=== PATIENT | male | born 1965 | race Caucasian/White ===

== ENCOUNTER 2022-05-01 09:53 | Outpatient (CLI) | payer BC, SELFPAY ==
--- NOTE | 2022-05-01 10:12 | CT_ITS ---
WS: [id number] CT HEAD TECHNIQUE: Noncontrast and contrast-enhanced CT of the head. CLINICAL INFORMATION: NEW ONSET HEADACHE COMPARISON: None. DLP: 2270.[address] scans at [facility] use at least one of these dose optimization techniques: automated e xposure control; mA and/or kV adjustment per patient size (includes targeted exams where dose is matc hed to clinical indication); or iterative reconstruction. FINDINGS: No evidence of intracranial hemorrhage or mass effect. Ventricular system and basal cisterns are webster nt. Normal jorge-white differentiation. No extra-axial fluid collections. No abnormal intracranial enh ancement. Paranasal sinuses and mastoid air cells well aerated. Normal posterior nasopharynx. Normal visualized dural venous sinuses. CT/CT head wo/w con [id number] IMPRESSION: 1. No evidence of intracranial hemorrhage or mass effect. 2. No abnormal intracranial enhancement. 3. Mild parenchymal volume loss. 4. No other acute findings.
[2022-05-01] MEDS: iohexol 350 mg/mL 100 mL Btl IV (10:27)
== END 2022-05-01 09:54 | disposition home or self-care (01) ==
LOC: RAD 09:54
PROVIDERS: PCP Family Medicine; Visit Provider Family Medicine
DX: R51.9 Headache, unspecified (principal)
CPT/HCPCS: 70470

== ENCOUNTER 2023-04-22 08:20 | Outpatient (CLI) | payer OTHER, SELFPAY ==
--- NOTE | 2023-04-22 08:33 | FL_ITS ---
WS: [id number] Exam: FL barium swallow modifd [id number] Date/Time of Exam: 04/22/2023 9:03 AM Reason For Exam: Other dysphagia Fluoroscopy time: 2min [id number] minutes # of spot films: Modified barium swallow was performed in conjunction with the speech therapy service. The patient ingested all consistencies of barium mixture foodstuffs without aspiration or penetration . Swallowing function at the level of the oropharynx was normal. The patient swallowed a barium table t without difficulty. IMPRESSION: 1. Unremarkable modified barium swallow. No aspiration, penetration or other significant finding. A separate report of recommendations and findings will follow from the speech therapy service.
== END 2023-04-22 08:21 | disposition home or self-care (01) ==
PROVIDERS: PCP Family Medicine; Visit Provider Specialist
DX: R13.19 Other dysphagia (principal)
CPT/HCPCS: 74230; 92611

== ENCOUNTER 2025-06-10 20:45 | Emergency (ER) | payer OTHER, SELFPAY ==
[2025-06-10] VITALS (12 sets, daily range): BP systolic 96–125; BP diastolic 64–85; PULSE 53–67; RESP 14–24; TEMP 36.8; O2SAT 92–98; BMI 25.7
--- OUTSIDE RECORDS SUMMARY | 2025-06-10 20:50 | XMS_ITS | Continuity of Care Document ---
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 Plan of Treatment Reminders Order Date Submit Date Provider Last Modified By Organization Details Last Modified Time Details Appointments LAB 2024 09:50A M LAB Not available Not available Not available OFFICE VISIT NIKOLAI 2024 09:15A M Jed Menchaca MD Not available Not available Not available Lab PSA, serum or plasma 2024 025 [employer], [address] [facility] [address], [address] [place], [address], 06/10/2025 10:45:31 CMP, serum or plasma 2024 025 BECKIE [facility], [address], [place], [address], 06/10/2025 11:25:33 lipid panel, blood 2024 025 [facility], [address], [place], [address], 06/10/2025 11:25:34 CBC 2024 025 BECKIE [facility], [address], [place], [address], 06/10/2025 11:06:31 Referral None recorded . Procedures None recorded . Surgeries None recorded . Imaging None recorded . Medication Orders None recorded . Patient TargetsNo targets recorded. Patient InstructionsNo instructions recorded. Reason for Referral None Reported. Results Created Date Observation Date Name Description Value Unit Range Abnormal Flag Note LastModifiedBy Organization Detail LastModifiedTime 06/10/2006/10/2025 CBC WBC 7.5 x10 4.5-10 .5 Not Available [facility] [address], [place], [address], 06/10/2025 11:06:30 06/10/2006/10/2025 CBC RBC 5.94 x10 4.30-5 .90 high Not Available [facility] [address] [facility] [address], [place], [address], 06/10/2025 11:06:30 06/10/20 25 06/10/2025 CBC HGB 18.1 g/dL 13.5-1 8.0 high Not Available [facility] [address] [facility] [address], [place], [address], 06/10/2025 11:06:30 06/10/20 25 06/10/2025 CBC HCT 54.4 % 35.0-6 0.0 Not Available [facility] [address] [facility] [address], [place], [address], 06/10/2025 11:06:30 06/10/20 25 06/10/2025 CBC MCV 91.5 fL 80.0-9 9.9 Not Available [facility] [address] [facility] [address], [place], [address], 06/10/2025 11:06:30 06/10/2006/10/2025 CBC MCH 30.4 pg 27.0-3 2.0 Not Available [facility] [address] [facility] [address], [place], [address], 06/10/2025 11:06:30 06/10/20 25 06/10/2025 CBC MCHC 33.2 g/dL 32.0-3 6.0 Not Available [facility] [address] [facility] [address], [place], [address], 06/10/2025 11:06:30 06/10/20 25 06/10/2025 CBC RDW 13.2 % 11.5-1 4.5 Not Available [facility] [address] [facility] [address], [place], [address], 06/10/2025 11:06:30 06/10/2006/10/2025 CBC plt 256.9 x10 150.0- 451.0 Not Available [facility] [address] [facility] [address], [place], [address], 06/10/2025 11:06:30 06/10/20 25 06/10/2025 CBC lymphocytes % 26.4 % 20.0-5 0.0 Not Available [facility] [address] [facility] [address], [place], [address], 06/10/2025 11:06:30 06/10/20 25 06/10/2025 CBC granulcytes % 61.6 % 30.0-7 0.0 Not Available [facility] [address] [facility] [address], [place], [address], 06/10/2025 11:06:30 06/10/20 25 06/10/2025 CBC monocytes % 10.6 % 2.0-16 .0 Not Available [facility] [address] [facility] [address], [place], [address], 06/10/2025 11:06:30 06/10/20 25 06/10/2025 CBC granulcytes# 4.6 x10 Not Letitia ilable [facility] [address] [facility], [place], [address], 06/10/2025 11:06:30 06/10/20 25 06/10/2025 CBC lymphocytes # 2.0 x10 Not Available [facility] [address] [facility] [place], [address], 06/10/2025 11:06:30 06/10/20 25 06/10/2025 CBC monocytes # 0.8 x10 Not Avai lable [facility] [address] [facility], [place], [address], 06/10/2025 11:06:30 06/10/20 25 06/10/2025 CMP (MALE ) glucose 108.0 mg/dL 60.0-9 9.0 high Not Available [facility] [address] [facility] [address], [place], [address], 06/10/2025 11:25:33 06/10/20 25 06/10/2025 CMP (MALE ) BUN (blood urea nitrogen) 13.0 mg/dL 10.0-2 6.0 Not Available [facility] [address] [facility], [place], [address], 06/10/2025 11:25:33 06/10/20 25 06/10/2025 CMP (MALE ) creatinine (serum) 1.0 mg/dL 0.4-1. 5 Not Available [facility] [address] [facility] [address], [place], [address], 06/10/2025 11:25:33 06/10/20 25 06/10/2025 CMP (MALE ) BUN/creatini ne ratio 13.00 ratio Not Available [facility] [address] [facility], [place], [address], 06/10/2025 11:25:33 06/10/20 25 06/10/2025 CMP (MALE ) eGFR calculated 81.0 Not Available [facility] [address] [facility] [address], [place], [address], 06/10/2025 11:25:33 06/10/20 25 06/10/2025 CMP (MALE ) total protein 8.2 g/dL 6.0-8. 5 Not Available [facility] [address] [facility] [address], [place], [address], 06/10/2025 11:25:33 06/10/20 25 06/10/2025 CMP (MALE ) total bilirubin 1.1 mg/dL 0.2-1. 3 Not Available [facility] [address] [facility] [address], [place], [address], 06/10/2025 11:25:33 06/10/20 25 06/10/2025 CMP (MALE ) albumin 4.9 g/dL 3.5-5. 5 Not Available [facility] [address] [facility], [place], [address], 06/10/2025 11:25:33 06/10/20 25 06/10/2025 CMP (MALE ) globulin 3.3 calc Not Available [facility] [place] [facility] [address] [facility], [place], [address], 06/10/2025 11:25:33 06/10/20 25 06/10/2025 CMP (MALE ) AST (SGOT) 36.0 U/L 0.0-46 .0 Not Available [facility] [address] [facility], [place], [address], 06/10/2025 11:25:33 06/10/20 25 06/10/2025 CMP (MALE ) altv (SGPT) 38.0 U/L 13.0-6 9.0 normal Not Available [facility] [address] [facility], [place], [address], 06/10/2025 11:25:33 06/10/20 25 06/10/2025 CMP (MALE ) A/G ratio 1.5 ratio Not Available [facility] [address] [facility], [place], [address], 06/10/2025 11:25:33 06/10/20 25 06/10/2025 CMP (MALE ) ALP phos 78.0 U/L 30.0-1 40.0 normal Not Available [facility] [address] [facility], [place], [address], 06/10/2025 11:25:33 06/10/20 25 06/10/2025 CMP (MALE ) calcium 9.5 mg/dL 8.4-10 .5 Not Available [facility] [address] [facility], [place], [address], 06/10/2025 11:25:33 06/10/20 25 06/10/2025 CMP (MALE ) sodium 140.0 mmol/ L 136.0- 145.0 Not Available [facility] [address] [facility], [place], [address], 06/10/2025 11:25:33 06/10/20 25 06/10/2025 CMP (MALE ) potassium 4.7 mmol/ L 3.5-5. 1 Not Available [facility] [address] [facility], [place], [address], 06/10/2025 11:25:33 06/10/20 25 06/10/2025 CMP (MALE ) chloride 102.0 mmol/ L 98.0-1 10.0 normal Not Available [facility] [address] [facility], [place], [address], 06/10/2025 11:25:33 06/10/20 25 06/10/2025 CMP (MALE ) C02 29.0 mmol/ L 22.0-3 1.0 Not Available [place] [facility] [address] [facility], [place], [address], 06/10/2025 11:25:33 06/10/20 25 06/10/2025 CMP (MALE ) anion gap 9.0 calc Not Available [facility] [address] [facility], [place], [address], 06/10/2025 11:25:33 06/10/20 25 06/10/2025 CMP (MALE ) osmolality 289.7 calc Not Available [facility] [address] [facility], [place], [address], 06/10/2025 11:25:33 06/10/20 25 06/10/2025 LIPID PROFI LE (MALE ) cholesterol 262.0 mg/dL 0.0-20 0.0 high Not Available [facility] [address] [facility], [place], [address], 06/10/2025 11:25:34 06/10/20 25 06/10/2025 LIPID PROFI LE (MALE ) trig 135.0 mg/dL 0.0-15 0.0 Not Available [facility] [address] [facility] [address], [place], [address], 06/10/2025 11:25:34 06/10/20 25 06/10/2025 LIPID PROFI LE (MALE ) HDL - direct 42.0 mg/dL >40.0 Not Available [facility] [address] [facility], [place], [address], 06/10/2025 11:25:34 06/10/20 25 06/10/2025 LIPID PROFI LE (MALE ) VLDL - direct 27.0 mg/dL Not Available [facility] [address] [facility], [place], [address], 06/10/2025 11:25:34 06/10/2006/10/2025 LIPID PROFI IGNACIO (MALE ) LDL - direct 193.0 mg/dL 0.0-13 0.0 high Not Available [facility] [address] [facility] [address], [place], [address], 06/10/2025 11:25:34 Result Notes None recorded. Problems Name Problem SNOMED Code Status Onset Date Resolution Date Notes Provider Name and Address Organization Details Recorded Time Tinnitus 65200374 Active 2021 Maame Tovar [facility] 5 15:56:00 Displacem ent of intervert ebral disc 8141605129 Active 2021 buldging disc l4-l5; dr lui; 2 8:54AM by Perri Evans RN, Office Visit; Promoted; acuity set as *; Maame worrell [facility] 5 15:56:00 BRCA1 gene mutation detected 621561024 [facility] 20[facility] 12:39:07 Insomnia 966811211 Active 2023 Maame Tovar [facility] 5 15:56:00 Red blood cell count above reference range 250742707 Active 2023 Maame Tovar [facility] 5 15:56:00 Chronic neck pain 611455623932 7 Active 2024 Maame Tovar [facility] 5 15:56:00 Low back pain co-occurr ent and due to bilateral sciatica 025362882903 19026 Active 2024 Maame Tovar [facility], Lisa 5 15:56:00 Problem Notes None recorded. Procedures Surgical History Date Name Laterality Status Provider Name and Address Organization Details Recorded Time 2021 esophagogastroduodenoscopy completed ARISTEO WILSON GALLAGHER [facility], Lisa 4 12:36:46 2014 [facility] 5 15:56:53 procedure on back completed CRYSTAL GALLAGHER [facility], Lisa 4 12:06:25 v[facility]ctomy completed [facility] 15:56:20 Imaging Results None recorded. Procedure Notes None recorded. Medical Equipment None Reported. Allergies No known drug allergies Medications Name Sig Start Date Stop Date Status Note LastModified by Organization Details LastModified Time amoxicill in 875 mg tablet two times daily 02/08 completed Recorded 06/18/20 22 7:17AM by Crystal Gallagher LPN, Historic al Summary; Refill Quantity : 0; Not Available Not Available Not Available omeprazol e 20 mg capsule,d elayed release two times daily 02/08 completed K27.9.; Recorded 04/02/20 22 12:34PM by Perri Evans RN, Office Visit; Refill Quantity : 60; Capsule; Not Available Not Available Not Available zolpidem 10 mg tablet TAKE 1 TABLET BY MOUTH EVERY NIGHT AT BEDTIME 2024 active Not Available Not Available Not Avai lable ondansetr on 4 mg disintegr ating tablet PLACE 1 TABLET ON TOP OF TONGUE AND ALLOW TO DISSOLVE 3 TIMES A DAY NEEDED 06/17 completed Not Available Not Available Not Available Mucinex D 60 mg-600 mg tablet,ex tended release 06/05 completed Not Available Not Available Not Available Vitals None Recorded Social History None recorded. Functional Status Question Answer Note LastModified by Organizat ion Details LastModified Time Do you use any illicit or recreational drugs? No [email or web address] Information not available 06/17/2024 Do you or have you ever used any other forms of tobacco or nicotine? Yes [email or web address] Information not available 06/17/2024 What is your level of alcohol consumption? Occasional [email or web address] Information not available 06/17/2024 Do you or have you ever used smokeless tobacco? Currently chews tobacco [email or web address] Information not available 06/17/2024 Do you or have you ever used any nicotine-free cigarettes, vape, or chewing tobacco? No [email or web address] Information not available 06/17/2024 Mental Status None recorded. Family History Relationship Description Onset Age of this Age Resolved Age Notes LastModified by Organization Details LastModified Time Sister Malignant neoplasm of breast [email or web address] Not available 08/28 16:05:22 Sister BRCA1 mutation carrier detection test [email or web address] Not available 08/28 16:05:29 Brother BRCA1 mutation carrier detection test [email or web address] Not available 06/17 12:04:15 Brother BRCA2 mutation carrier detection test [email or web address] Not available 06/17 12:04:24 Medical History No medical history recorded. Immunizations Vaccine Type Date Status Note Provider Nam e and Address Organization Details Recorded Time COVID-19, mRNA, LNP-S, PF, 100 mcg/0.5mL dose or 50 mcg/0.25mL dose 2 completed Maame worrell [facility] 02/08/2023 13:46:16 Influenza, split virus, trivalent, PF 4 completed CRYSTAL worrell [facility] 06/17/2024 13:53:09 Tdap 4 completed CRYSTAL worrell [facility] 06/17/2024 13:53:34 Influenza, split virus, quadrivalent, preservative 4 completed Maame worrell [facility] 02/08/2023 13:46:16 COVID-19, mRNA, LNP-S, PF, 100 mcg/0.5mL dose or 50 mcg/0.25mL dose 2 completed Maame Guy null, [facility] 02/08/2023 13:46:16 COVID-19, mRNA, LNP-S, PF, 100 mcg/0.5mL dose or 50 mcg/0.25mL dose 2 completed Maame Guy null, [facility] 02/08/2023 13:46:16 Tdap 4 completed Maame Guy null, [facility] 02/08/2023 13:46:16 Past Encounters Encounter ID Performer Location Encounter Start Date Encounter Closed Date Diagnosis/Indication Diagnosis SNOMED-CT Code Diagnosis ICD10 Code Diagnosis IMO Codes Diagnosis Note [id number] Jed Menchaca MD [facility] ([facility]) [address] [place] [id number] [id number] 06/10/2025 10:43:43 06/10/2025 10:46:20 Screening for malignant neoplasm of prostate 854218431 Z12.5 [id number] Physical examination 588 0005 Z00.00 532707 Health Concerns Section Related Observation LastModified by Organization Detai ls LastModified Time None Recorded Concern Status LastModified by Organization Details LastModified Time None Recorded Payers Encounter Date Sequence Insurance Name Policy Number Policy Win Covered Member ID Win Member ID Guarantor Name 06/10/2025 1 [facility] [id number] Matthieu Rod [id number] Matthieu Rod
--- OUTSIDE RECORDS SUMMARY | 2025-06-10 20:50 | XMS_ITS | Data Portability ---
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 i would recommend continuing PT and f/u if any worsening radicular symptoms or any new or worrisome sx's [id number] Not available 11/09/2024 13:25:00 Plan of Treatment Reminders Order Date Submit Date Provider Last Modified By Organization Details Last Modified Time Details Appointments LAB 2024 09:50A M LAB Not available Not available Not available OFFICE VISIT NIKOLAI 2024 09:15A M Jed Schmidt MD Not available Not available Not available Lab PSA, serum or plasma 2024 025 [facility], [address] [place] [address] [address], [address] [place], [address], 06/10/2025 10:45:31 CMP, serum or plasma 2024 025 [facility], [address], [facility] 1, [place], [address], 06/10/2025 11:25:33 lipid panel, blood 2024 025 [facility], [address], [facility] 1, [place], [address], 06/10/2025 11:25:34 CBC 2024 025 [facility], [address], [facility] [address], [address], 06/10/2025 11:06:31 CBC 2023 024 [facility], [facility] [address], [facility] [address], [place], [address], 06/19/2024 07:07:23 CMP, serum or plasma 2023 024 [facility], [facility] [address], [address], [address], 06/19/2024 07:07:21 lipid panel, blood 2023 024 [facility], [facility] [address], [facility] 120, [place], [address], 06/19/2024 07:07:20 PSA, serum or plasma 2023 024 [facility], [facility], [facility] 120, [place], [address], 06/19/2024 07:07:24 Referral physical therapist referral - for chronic neck and low back pain with sciatica 2024 025 [facility], [address], [address], 09/29/2024 15:30:35 Procedures None recorded. Surgeries None recorded. Imaging XR, cervical spine, 2 or 3 view - flexion/e xtension views 2024 025 [email or web address] [facility], [address] [place], [address], 09/21/2024 15:50:09 XR, lumbosacr al spine, 2 or 3 view - flexion/e xtension views 2024 025 [email or web address] [facility], [address] [place], [address], 09/21/2024 15:50:10 Medication Orders ondansetr on 4 mg disintegr ating tablet [address] [facility][id number], [address], [facility] 2, [place], [address], 06/17/2024 12:03:33 Patient TargetsNo targets recorded. Patient InstructionsNo instructions recorded. Reason for Referral Physical Therapist Referral for Chronic neck pain for chronic neck and low back pain with sciatica Referring Physician: Jed Schmidt, Family Medicine, Encounter Date: 09/21/2024 Results Created Date Observation Date Name Description Value Unit Range Abnormal Flag Note LastModifiedBy Organization Detail LastModifiedTime 06/18/20 24 06/19/2024 LIPID PANEL , NONFA STING W/O TRIGL YCERI SEA cholesterol, total 192 mg/dL <200 normal Not Available [address], [address], 06/19/2024 07:07:20 06/18/20 24 06/19/2024 LIPID PANEL , NONFA STING W/O TRIGL YCERI SEA HDL cholesterol 39 mg/dL > or = 40 low Not Available [facility] [address], [address], 06/19/2024 07:07:20 06/18/20 24 06/19/2024 LIPID PANEL , NONFA STING W/O TRIGL YCERI SEA chol/HDLC ratio 4.9 (calc ) <5.0 normal Not Available [facility] [address], [address], 06/19/2024 07:07:20 06/18/20 24 06/19/2024 LIPID PANEL , NONFA STING W/O TRIGL YCERI SEA non HDL cholesterol 153 mg/dL _(perla c) <130 high For patie nts with diabe maura plus 1 major ASCVD risk facto r, treat ing to a non-H DL-C goal of <100 mg/dL (LDL- C of <70 mg/dL ) is consi alla emery optio n. Not Available [address], [address], 06/19/2024 07:07:20 06/18/20 24 06/19/2024 COMPR EHENS LD METAB OLIC PANEL glucose 93 mg/dL 65-99 normal Fasti ng refer ence inter eleazar Not Available [address], [address], 06/19/2024 07:07:21 06/18/20 24 06/19/2024 COMPR EHENS LD METAB OLIC PANEL urea nitrogen (BUN) 13 mg/dL 7-25 normal Not Available [address] [place], [address], 06/19/2024 07:07:21 06/18/20 24 06/19/2024 COMPR EHENS LD METAB OLIC PANEL creatinine 0.86 mg/dL 0.70-1 .30 normal Not Available [address], [address], 06/19/2024 07:07:21 06/18/20 24 06/19/2024 COMPR EHENS LD METAB OLIC PANEL eGFR 100 mL/mi n/1.7 3m2 > or = 60 normal Not Available [address], [address], 06/19/2024 07:07:21 06/18/20 24 06/19/2024 COMPR EHENS LD METAB OLIC PANEL BUN/creatini ne ratio SEE NOTE: (calc ) 6-22 Not Repor zoltan: BUN and Creat inine are withi n refer ence range . Not Available [address] [place], [address], 06/19/2024 07:07:21 06/18/20 24 06/19/2024 COMPR EHENS LD METAB OLIC PANEL sodium 136 mmol/ L 135-14 6 normal Not Available [address], [address], 06/19/2024 07:07:21 06/18/20 24 06/19/2024 COMPR EHENS LD METAB OLIC PANEL potassium 4.4 mmol/ L 3.5-5. 3 normal Not Available [address], [address], 06/19/2024 07:07:21 06/18/20 24 06/19/2024 COMPR EHENS LD METAB OLIC PANEL chloride 100 mmol/ L 98-110 normal Not Available [address], [address], 06/19/2024 07:07:21 06/18/20 24 06/19/2024 COMPR EHENS LD METAB OLIC PANEL carbon dioxide 28 mmol/ L 20-32 normal Not Available [address], [address], 06/19/2024 07:07:21 06/18/20 24 06/19/2024 COMPR EHENS LD METAB OLIC PANEL calcium 9.3 mg/dL 8.6-10 .3 normal Not Available [address], [address], 06/19/2024 07:07:21 06/18/20 24 06/19/2024 COMPR EHENS LD METAB OLIC PANEL protein, total 7.4 g/dL 6.1-8. 1 normal Not Available [address], [address], 06/19/2024 07:07:21 06/18/20 24 06/19/2024 COMPR EHENS LD METAB OLIC PANEL albumin 4.6 g/dL 3.6-5. 1 normal Not Available [address], [address], 06/19/2024 07:07:21 06/18/20 24 06/19/2024 COMPR EHENS LD METAB OLIC PANEL globulin 2.8 g/dL_ (calc ) 1.9-3. 7 normal Not Available [address], [address], 06/19/2024 07:07:21 06/18/20 24 06/19/2024 COMPR EHENS LD METAB OLIC PANEL albumin/glob ulin ratio 1.6 (calc ) 1.0-2. 5 normal Not Available [address], [address], 06/19/2024 07:07:21 06/18/20 24 06/19/2024 COMPR EHENS LD METAB OLIC PANEL bilirubin, total 0.8 mg/dL 0.2-1. 2 normal Not Available [address], [address], 06/19/2024 07:07:21 06/18/20 24 06/19/2024 COMPR EHENS LD METAB OLIC PANEL alkaline phosphatase 68 U/L 35-144 normal Not Available [address], [address], 06/19/2024 07:07:21 06/18/20 24 06/19/2024 COMPR EHENS LD METAB OLIC PANEL AST 25 U/L 10-35 normal Not Available [address], [address], 06/19/2024 07:07:21 06/18/20 24 06/19/2024 COMPR EHENS LD METAB OLIC PANEL ALT 35 U/L 9-46 normal Not Available [address], [address], 06/19/2024 07:07:21 06/18/20 24 06/19/2024 CBC (H/H, RBC, INDIC ES, WBC, PLT) white blood cell count 7.8 thous and/u L 3.8-10 .8 normal Not Available [address], [address], 06/19/2024 07:07:23 06/18/20 24 06/19/2024 CBC (H/H, RBC, INDIC ES, WBC, PLT) red blood cell count 5.68 bill on/uL 4.20-5 .80 normal Not Available [address], [address], 06/19/2024 07:07:23 06/18/20 24 06/19/2024 CBC (H/H, RBC, INDIC ES, WBC, PLT) hemoglobin 17.0 g/dL 13.2-1 7.1 normal Not Available [address], [address], 06/19/2024 07:07:23 06/18/20 24 06/19/2024 CBC (H/H, RBC, INDIC ES, WBC, PLT) hematocrit 52.0 % 38.5-5 0.0 high Not Available [address], [address], 06/19/2024 07:07:23 06/18/20 24 06/19/2024 CBC (H/H, RBC, INDIC ES, WBC, PLT) MCV 91.5 fL 80.0-1 00.0 normal Not Available [address], [address], 06/19/2024 07:07:23 06/18/20 24 06/19/2024 CBC (H/H, RBC, INDIC ES, WBC, PLT) MCH 29.9 pg 27.0-3 3.0 normal Not Available [address], [address], 06/19/2024 07:07:23 06/18/20 24 06/19/2024 CBC (H/H, RBC, INDIC ES, WBC, PLT) MCHC 32.7 g/dL 32.0-3 6.0 normal For adult s, a sligh t decre ase in the calcu lated MCHC value (in the range of 30 to 32 g/dL) is most likel y not clini gold signi fican t; arsenev er, it shoul d be inter prete d with cauti on in corre lat n with other red cell maude eters and the patie nt's clini perla condi tion. Not Available [address], [address], 06/19/2024 07:07:23 06/18/20 24 06/19/2024 CBC (H/H, RBC, INDIC ES, WBC, PLT) RDW 11.9 % 11.0-1 5.0 normal Not Available [address], [address], 06/19/2024 07:07:23 06/18/20 24 06/19/2024 CBC (H/H, RBC, INDIC ES, WBC, PLT) platelet count 301 thous and/u L 140-40 0 normal Not Available [address], [address], 06/19/2024 07:07:23 06/18/20 24 06/19/2024 CBC (H/H, RBC, INDIC ES, WBC, PLT) MPV 9.7 fL 7.5-12 .5 normal Not Available [address], [address], 06/19/2024 07:07:23 06/18/20 24 06/19/2024 PSA, TOTAL PSA, total 1.28 NG/mL < or = 4.00 normal The total PSA value from this assay syste m is stand ardiz ed again st the WHO stand home. The test resul t will be appro ximat ayaka 20% lower when sonu red to the equim olar- stand ardiz ed total PSA (Ryo man Coult er). Sonu rison of seria l PSA resul ts shoul d be inter prete d with this fact in mind. This test was perfo rmed using the Sieme ns chemi lumin escen t metho d. Value s obtai lee from diffe rent assay metho ds canno t be used inter valadez eably . PSA level s, regar dless of value , shoul d not be inter prete d as absol aniak evide nce of the prese nce or absen ce of disea se. Not Available [facility] [address] [place], [address], 06/19/2024 07:07:24 06/18/2006/25/2024 PATHO LOGIS T REVIE W OF PERIP HERAL SMEAR pathologist review of peripheral smear TOMEKA L WBC AND PLATE LET MORPH OLOGY , MILD INCRE ASE IN HEMAT OCRIT WITH TOMEKA L RBC MORPH OLOGY . CONSI GLENN AN INFEC TIOUS OR REACT LD ETIOL OGY. CORRE LATIO N AND CLINI GOLD APPRO PRIAT E FOLLO W UP SUGGE STED. SMEAR (S) REVIE WED BY FREDDY Chaudhry M.D. SMEAR REVIE W PERFO RMING LOCAT ION: [facility], [address] [place] [address] Labor atory Direc tor: Freddy chaudhry M.D. CLIA: [id number] As of 2024, test code 833, Patho logis t Revie w of Perip heral Smear will be disco ntinu ed. Per previ ous commu nicat ion sent May 12, 2024, this updat e is to furth er align with stand home proce sses as well as allow us to provi de more accur ate and timel y resul t repor ting. Pleas e consi glenn order ing the stand home CBC with diffe renti al/Alex martines t, test code 6399, for your testi ng needs . Not Available [facility] [address] [place], [address], 06/25/2024 16:27:18 06/19/20 24 06/19/2024 CBC WBC 9.7 x10 4.5-10 .5 Not Available [facility] [address] [facility] 1, [place], [address], 06/19/2024 15:39:31 06/19/20 24 06/19/2024 CBC RBC 5.44 x10 4.30-5 .90 Not Available [facility] [address] [facility] 1, [place], [address], 06/19/2024 15:39:31 06/19/20 24 06/19/2024 CBC HGB 16.5 g/dL 13.5-1 8.0 Not Available [facility] [address] [facility] 1, [place], [address], 06/19/2024 15:39:31 06/19/20 24 06/19/2024 CBC HCT 47.8 % 35.0-6 0.0 Not Available [facility] [address] [facility], [place], [address], 06/19/2024 15:39:31 06/19/20 24 06/19/2024 CBC MCV 87.9 fL 80.0-9 9.9 Not Available [facility] [address] [facility] 1, [place], [address], 06/19/2024 15:39:31 06/19/20 24 06/19/2024 CBC MCH 30.3 pg 27.0-3 2.0 Not Available [facility] [address] [facility] 1, [place], [address], 06/19/2024 15:39:31 06/19/20 24 06/19/2024 CBC MCHC 34.5 g/dL 32.0-3 6.0 Not Available [facility] [address] [facility], [place], [address], 06/19/2024 15:39:31 06/19/20 24 06/19/2024 CBC RDW 13.3 % 11.5-1 4.5 Not Available [facility] [address] [facility] 1, [place], [address], 06/19/2024 15:39:31 06/19/20 24 06/19/2024 CBC plt 270.7 x10 150.0- 451.0 Not Available [facility] [address] [facility] 1, [place], [address], 06/19/2024 15:39:31 06/19/20 24 06/19/2024 CBC lymphocytes % 15.8 % 20.0-5 0.0 low Not Available [facility] [address] [facility] 1, [place], [address], 06/19/2024 15:39:31 06/19/20 24 06/19/2024 CBC granulcytes % 71.4 % 30.0-7 0.0 high Not Available [facility] [address] [facility] 1, [place], [address], 06/19/2024 15:39:31 06/19/20 24 06/19/2024 CBC monocytes % 11.8 % 2.0-16 .0 Not Available [facility] [address] [facility] 1, [place], [address], 06/19/2024 15:39:31 06/19/20 24 06/19/2024 CBC granulcytes# 6.9 x10 Not Letitia ilable [facility] [address] [facility] 1, [place], [address], 06/19/2024 15:39:31 06/19/20 24 06/19/2024 CBC lymphocytes # 1.5 x10 Not Available [facility] [address] [facility] 1, [place], [address], 06/19/2024 15:39:31 06/19/20 24 06/19/2024 CBC monocytes # 1.1 x10 Not [facility]ai [facility] [address] [facility], [place], [address], 06/19/2024 15:39:31 06/19/20 24 06/20/2024 PATHO LOGIS Monika Osman OF PERIP HERAL SMEAR pathologist review of peripheral smear TNP TEST NOT PERFO RMED Dupli roberto test. Not Available [facility] [address], [place], [address], 06/20/2024 16:46:56 06/10/20 25 06/10/2025 CBC WBC 7.5 x10 4.5-10 .5 Not Available [facility] [address] [facility], [place], [address], 06/10/2025 11:06:30 06/10/20 25 06/10/2025 CBC RBC 5.94 x10 4.30-5 .90 high Not Available [facility] [address] [facility], [place], [address], 06/10/2025 11:06:30 06/10/20 25 06/10/2025 CBC HGB 18.1 g/dL 13.5-1 8.0 high Not Available [facility] [address] [facility] 1, [place], [address], 06/10/2025 11:06:30 06/10/20 25 06/10/2025 CBC HCT 54.4 % 35.0-6 0.0 Not Available [facility] [address], [place], [address], 06/10/2025 11:06:30 06/10/2006/10/2025 CBC MCV 91.5 fL 80.0-9 9.9 Not Available [facility] [address], [place], [address], 06/10/2025 11:06:30 06/10/20 25 06/10/2025 CBC MCH 30.4 pg 27.0-3 2.0 Not Available [facility] [address], [place], [address], 06/10/2025 11:06:30 06/10/2006/10/2025 CBC MCHC 33.2 g/dL 32.0-3 6.0 Not Available [facility] [address] [facility] 1, [place], [address], 06/10/2025 11:06:30 06/10/20 25 06/10/2025 CBC RDW 13.2 % 11.5-1 4.5 Not Available [facility] [address] [facility] 1, [place], [address], 06/10/2025 11:06:30 06/10/20 25 06/10/2025 CBC plt 256.9 x10 150.0- 451.0 Not Available [facility] [address] [facility] 1, [place], [address], 06/10/2025 11:06:30 06/10/20 25 06/10/2025 CBC lymphocytes % 26.4 % 20.0-5 0.0 Not Available [facility] [address], [place], [address], 06/10/2025 11:06:30 06/10/20 25 06/10/2025 CBC granulcytes % 61.6 % 30.0-7 0.0 Not Available [facility] [address] [facility], [place], [address], 06/10/2025 11:06:30 06/10/20 25 06/10/2025 CBC monocytes % 10.6 % 2.0-16 .0 Not Available [facility] [address] [facility], [place], [address], 06/10/2025 11:06:30 06/10/20 25 06/10/2025 CBC granulcytes# 4.6 x10 Not Letitia ilable [facility] [address] [facility] 1, [place], [address], 06/10/2025 11:06:30 06/10/20 25 06/10/2025 CBC lymphocytes # 2.0 x10 Not Available [facility] [address] [facility], [place], [address], 06/10/2025 11:06:30 06/10/2006/10/2025 CBC monocytes # 0.8 x10 Not Avai lable [facility] [address] [facility] 1, [place], [address], 06/10/2025 11:06:30 06/10/20 25 06/10/2025 CMP (MALE ) glucose 108.0 mg/dL 60.0-9 9.0 high Not Available [facility] [address] [facility], [place], [address], 06/10/2025 11:25:33 06/10/20 25 06/10/2025 CMP (MALE ) BUN (blood urea nitrogen) 13.0 mg/dL 10.0-2 6.0 Not Available [facility] [address] [facility], [place], [address], 06/10/2025 11:25:33 06/10/20 25 06/10/2025 CMP (MALE ) creatinine (serum) 1.0 mg/dL 0.4-1. 5 Not Available [facility] [address], [place], [address], 06/10/2025 11:25:33 06/10/20 25 06/10/2025 CMP (MALE ) BUN/creatini ne ratio 13.00 ratio Not Available [facility] [address], [place], [address], 06/10/2025 11:25:33 06/10/20 25 06/10/2025 CMP (MALE ) eGFR calculated 81.0 Not Available [facility] [address] [facility] 1, [place], [address], 06/10/2025 11:25:33 06/10/20 25 06/10/2025 CMP (MALE ) total protein 8.2 g/dL 6.0-8. 5 Not Available [facility] [address] [facility] 1, [place], [address], 06/10/2025 11:25:33 06/10/20 25 06/10/2025 CMP (MALE ) total bilirubin 1.1 mg/dL 0.2-1. 3 Not Available [facility] [address] [facility] 1, [place], [address], 06/10/2025 11:25:33 06/10/20 25 06/10/2025 CMP (MALE ) albumin 4.9 g/dL 3.5-5. 5 Not Available [facility] [address] [facility] 1, [place], [address], 06/10/2025 11:25:33 06/10/20 25 06/10/2025 CMP (MALE ) globulin 3.3 calc Not Available [facility] [address] [facility], [place], [address], 06/10/2025 11:25:33 06/10/20 25 06/10/2025 CMP (MALE ) AST (SGOT) 36.0 U/L 0.0-46 .0 Not Available [facility] [address] [facility], [place], [address], 06/10/2025 11:25:33 06/10/20 25 06/10/2025 CMP (MALE ) altv (SGPT) 38.0 U/L 13.0-6 9.0 normal Not Available [facility] [address] [facility], [place], [address], 06/10/2025 11:25:33 06/10/20 25 06/10/2025 CMP (MALE ) A/G ratio 1.5 ratio Not Available [facility] [address] [facility] 1, [place], [address], 06/10/2025 11:25:33 06/10/20 25 06/10/2025 CMP (MALE ) ALP phos 78.0 U/L 30.0-1 40.0 normal Not Available [facility] [address] [facility], [place], [address], 06/10/2025 11:25:33 06/10/20 25 06/10/2025 CMP (MALE ) calcium 9.5 mg/dL 8.4-10 .5 Not Available [facility] [address] [facility], [place], [address], 06/10/2025 11:25:33 06/10/20 25 06/10/2025 CMP (MALE ) sodium 140.0 mmol/ L 136.0- 145.0 Not Available [facility] [address] [facility], [place], [address], 06/10/2025 11:25:33 06/10/20 25 06/10/2025 CMP (MALE ) potassium 4.7 mmol/ L 3.5-5. 1 Not Available [facility] [address] [facility] 1, [place], [address], 06/10/2025 11:25:33 06/10/20 25 06/10/2025 CMP (MALE ) chloride 102.0 mmol/ L 98.0-1 10.0 normal Not Available [facility] [address] [facility] 1, [place], [address], 06/10/2025 11:25:33 06/10/20 25 06/10/2025 CMP (MALE ) C02 29.0 mmol/ L 22.0-3 1.0 Not Available [facility] [address] [facility] 1, [place], [address], 06/10/2025 11:25:33 06/10/20 25 06/10/2025 CMP (MALE ) anion gap 9.0 calc Not Available [facility] [address] [facility] 1, [place], [address], 06/10/2025 11:25:33 06/10/20 25 06/10/2025 CMP (MALE ) osmolality 289.7 calc Not Available [facility] [address] [facility], [place], [address], 06/10/2025 11:25:33 06/10/20 25 06/10/2025 LIPID PROFI LE (MALE ) cholesterol 262.0 mg/dL 0.0-20 0.0 high Not Available [facility] [address] [facility] 1, [place], [address], 06/10/2025 11:25:34 06/10/20 25 06/10/2025 LIPID PROFI LE (MALE ) trig 135.0 mg/dL 0.0-15 0.0 Not Available [facility] [address] [facility] 1, [place], [address], 06/10/2025 11:25:34 06/10/20 25 06/10/2025 LIPID PROFI LE (MALE ) HDL - direct 42.0 mg/dL >40.[address] [facility] [address] [facility] 1, [place], [address], 06/10/2025 11:25:34 06/10/20 25 06/10/2025 LIPID PROFI LE (MALE ) VLDL - direct 27.0 mg/dL Not Available [facility] [address] [facility] 1, [place], [address], 06/10/2025 11:25:34 06/10/20 25 06/10/2025 LIPID PROFI LE (MALE ) LDL - direct 193.0 mg/dL 0.0-13 0.0 high Not Available [facility] [address] [facility] 1, [place], [address], 06/10/2025 11:25:34 06/17/20 24 colon oscop y proce dure (PROC ) No observ ation record ed. [email or web address] Not Available 2023 09:19:44 09/23/19 25 09/21/2024 XR, lumbo sacra l spine , 2 or 3 view No observ ation record ed. [address] [place], [address], 09/24/2024 16:30:26 09/23/19 25 09/21/2024 XR, cervi perla spine , 2 or 3 view No observ ation record ed. [address] [place], [address], 09/24/2024 16:30:47 Result Notes None recorded. Problems Name Problem SNOMED Code Status Onset Date Resolution Date Notes Provider Name and Address Organization Details Recorded Time 99891120 Active 2021 Maame worrell, [facility] 5 15:56:00 Displacem ent of intervert ebral disc 6412335142 Active 2021 buldging disc l4-l5; dr lui; 2 8:54AM by Perri Evans RN, Office Visit; Promoted; acuity set as *[facility] 15:56:00 BRCA1 gene mutation detected 309774990 [facility] 2023 [facility] 12:39:07 Insomnia 407659401 Active [address] [facility] 5 15:56:00 Red blood cell count above reference range 392993329 Active 2023 Maame Tovar [facility], [facility] 5 15:56:00 Chronic neck pain 468088397561 [address] [facility] 5 15:56:00 Low back pain co-occurr ent and due to bilateral sciatica [id number] 15271 Active 2024 Maame Tovar [facility] 5 15:56:00 Problem Notes None recorded. Procedures Surgical History Date Name Laterality Status Provider Name and Address Organization Details Recorded Time 2021 esophagogastroduodenoscopy completed ARISTEO GALLAGHER [facility] 4 12:36:46 2014 colonoscopy completed Maame Tovar [facility], [facility] 5 15:56:53 procedure on back [facility] 4 12:06:25 [facility] 15:[facility]20 Imaging Results None recorded. Procedure Notes None recorded. Medical Equipment None Reported. Allergies No known drug allergies Medications Name Sig Start Date Stop Date Status Note LastModified by Organization Details LastModified Time amoxicill in 875 mg tablet two times daily 02/08 completed Recorded 06/18/20 7:17AM by Crystal Gallagher LPN, Historic al Summary; Refill Quantity : 0; Not Available Not Available Not Available omeprazol e 20 mg capsule,d elayed release two times daily 02/08 completed K27.9.; Recorded 04/02/20 12:34PM by Perri Evans RN, Office Visit; [...] Not Available Not Available Not Available Vitals Date Recorded Body height Body mass index (BMI) Body weight Body temperature Heart rate Oxygen saturation Systolic And Diastolic Provider Name and Address Organization Details Last Updated DateTime 5 182.88 cm 25 kg/m2 66079 g 97.6 [degF] 63 /min 97 % 112/68 mm[Hg] [facility] 10:[facility]40 Date Recorded Body height Body mass index (BMI) Body weight Body temperature Heart rate Oxygen saturation Systolic And Diastolic Provider Name and Address Organization Details Last Updated DateTime 5 182.88 cm 25.1 kg/m2 67054.5 9 g 97.3 [degF] 64 /min 98 % 122/74 mm[Hg] Maame Tovar [facility] 5 12:51:03 Date Recorded Body height Body mass index (BMI) Body weight Body temperature Heart rate Oxygen saturation Systolic And Diastolic Provider Name and Address Organization Details Last Updated DateTime 4 182.88 cm 25.5 kg/m2 23365.0 7 g 98.2 [degF] 99 /min 98 % 110/60 mm[Hg] America Lj [facility] 4 16:01:51 Date Recorded Body height Body mass index (BMI) Body weight Body temperature Heart rate Oxygen saturation Systolic And Diastolic Provider Name and Address Organization Details Last Updated DateTime 4 182.88 cm 25.1 kg/m2 55935.5 9 g 98.1 [degF] 87 /min 95 % 128/62 mm[Hg] CRYSTAL GALLAGHER [facility] 4 12:01:51 Social History None recorded. Functional Status Question Answer Note LastModified by Organizat ion Details LastModified Time Do you use any illicit or recreational drugs? No [email or web address] Information not available 06/17/2024 Do you or have you ever used any other forms of tobacco or nicotine? Yes [email or web address] Information not available 06/17/2024 What is your level of alcohol consumption? Occasional [email or web address] Information not available 06/17/2024 Do you or have you ever used smokeless tobacco? Currently chews tobacco [email or web address] Information not available 06/17/2024 Do you or have you ever used any nicotine-free cigarettes, vape, or chewing tobacco? No [email or web address] Information not available 06/17/2024 Mental Status None recorded. Family History Relationship Description Onset Age of this Age Resolved Age Notes LastModified by Organization Details LastModified Time Sister Malignant neoplasm of breast [email or web address] Not available 08/28 16:05:22 Sister BRCA1 mutation carrier detection test [email or web address] Not available 08/28 16:05:29 Brother BRCA1 mutation carrier detection test [email or web address] Not available 06/17 12:04:15 Brother BRCA2 mutation carrier detection test Not available 06/17 12:04:24 Medical History No medical history recorded. Immunizations Vaccine Type Date Status Note Provider Nam e and Address Organization Details Recorded Time COVID-19, mRNA, LNP-S, PF, 100 mcg/0.5mL dose or 50 mcg/0.25mL dose 2 completed Maame worrell [facility] 02/08/2023 13:46:16 Influenza, split virus, trivalent, PF 4 completed CRYSTAL worrell, [facility] 06/17/2024 13:53:09 Tdap 4 completed CRYSTAL worrell, [facility] 06/17/2024 13:53:34 Influenza, split virus, quadrivalent, preservative 4 completed Maame worrell [facility] 02/08/2023 13:46:16 COVID-19, mRNA, LNP-S, PF, 100 mcg/0.5mL dose or 50 mcg/0.25mL dose 2 [facility]08[facility]23 13:46:16 COVID-19, mRNA, LNP-S, PF, 100 mcg/0.5mL dose or 50 mcg/0.25mL dose 2 completed Maame worrell [facility] 02/08/2023 13:46:16 Tdap 4 completed Maame worrell [facility] 02/08/2023 13:46:16 Past Encounters Encounter ID Performer Location Encounter Start Date Encounter Closed Date Diagnosis/Indication Diagnosis SNOMED-CT Code Diagnosis ICD10 Code Diagnosis IMO Codes Diagnosis Note [id number] Jed Schmidt MD [facility] ([facility]) [address] [place] [address] 02/08/2023 13:39:07 02/08/2023 14:28:33 Constipation 11752197 K59.00 no sign of obstructio n normal exam will try m.o.m. this afternoon and he will perla if not improvedif signs of obstructio n as disussed he will go to the ER. Viral syndrome 857131736 B34.9 resolved Difficulty swallowing fluid 179699897 R13.10 he has an odd lifelong complaint of not being able to breathe if he swallows by looking left. this is fairly consistent and he can't take a breath for several seconds. the only thing i know to assess this would be direct visualizat ion of the epiglottis etc under laryngosco py. it is distressin g enough i think evaluation while maybe nothing can be done would be important. [id number] KD COLLINS [facility] ([facility]) [address] [place] [phone] 06/05/2024 15:53:35 06/09/2024 14:55:55 Acute gastroenteritis 56930369 K52.9 Discussed BRATS diet, small frequent sips of fluid. Rest.VSS. No signs of acute abd on exam today.If you develop fever, no urine output over 24 hours, bloody stools/brandon sis, abd pain, or concerns arise return for re-eval. [id number] Jed Schmidt MD [facility] ([facility]) [address] [place] [phone] 06/17/2024 11:43:47 06/17/2024 17:42:23 Active or passive immunization 240828385 Z23 Adult [facility] th examination 790078428 Z00.00 Administra tion of influenza vaccine 33306794 Z23 Administra tion of diphtheria, pertussis, and tetanus vaccine 405878552 Z23 Insomnia 990357600 G47.0 0 he reports he absolutely cannot sleep without his medicaton. [id number] Jed Schmidt MD [facility] ([facility]) [address] [place] [phone] 09/21/2024 10:28:16 09/21/2024 15:50:09 Chronic neck pain 4199248354 107 M54.2 Low back p ain co-occurrent and due to bilateral sciatica 1454172015 3339497 M54.41 M54.42 history of cervical interventi on.stretch ing as demonstrat ed gently to help relieve pressuresu spect s1 discogenic painthc gummies are helpfulcon tinue anti-infla mmatories prn. [id number] Jed Schmidt MD [facility] ([facility]) [address] [place] [phone] 11/09/2024 12:44:19 11/09/2024 13:51:33 Neck pain 83730775 M54.2 [id number] Jed Schmidt MD [facility] ([facility]) [address] [place] [phone] 06/10/2025 10:43:43 06/10/2025 10:46:20 Screening for malignant neoplasm of prostate 956616090 Z12.5 6538668 Physical examination 588 0005 Z00.00 [id number] Health Concerns Section Related Observation LastModified by Organization Detai ls LastModified Time None Recorded Concern Status LastModified by Organization Details LastModified Time None Recorded Advance Directives Directive None Recorded Payers Insurance Date Sequence Insurance Name Policy Number Policy Win Covered Member ID Win Member ID Guarantor Name 06/10/2025 1 [facility] [id number] Matthieu Rod [id number] Matthieu Rod 03/06/2023 1 UNSPECIFIED REMIT PAYOR Matthieu Rod Notes Date Note Type Note Provider Name and Address Organization Details Recorded Time 06/05/2024 text/html ROS as noted in the HPI walk in ptPt is having upper abdominal pain with diarrhea and nausea that started this morning Has taken tylenol and acid reducers. keeping water down. several diarrhea stools today. KD COLLINS [address] [place] [address], [phone], [facility] Rodgers [place] [facility], Lisa 06/09/2024 08:53:42 06/17/2024 text/html Annual WellnessReported by PatientROS as noted in the HPI Jed Schmidt MD [address] [place] [address], [phone], [facility] 06/17/2024 12:52:56 09/21/2024 text/html Musculoskeletal PainReported by PatientHPIFor associated symptoms, patient reportstingling (in feet and calves)but reportsno feverandno numbness of the legs/feet. For location, patient reportsright neck,thoracic spine, andlumbar spine. For duration, patient reportspresent for 1-6 months (neck)andpresent for >12 months (back pain).ROS as noted in the [facility] eJd Schmidt MD [address] [place] [address], [phone], [facility] 09/21/2024 11:15:42 11/09/2024 text/html Musculoskeletal PainReported by PatientHPIFor associated symptoms, patient reportstingling (in feet and calves)but reportsno feverandno numbness of the legs/feet. For location, patient reportsright neck,thoracic spine, andlumbar spine. For duration, patient reportspresent for 1-6 months (neck).Back pain has resolved, but the neck pain is still present.he has been doing PT. he has responded well with his back. he has had 5-6 sessions. at this moment is pain is 0-1/10. as the day goes on, he has catching in the muscles of his neck causing spasm. it is worse when he looks to his right. he has no current cervical radiculopathy.ROS as noted in the [facility] Jed Schmidt MD [address] [place], [phone], [facility] 11/09/2024 13:25:13
--- OUTSIDE RECORDS SUMMARY | 2025-06-10 20:50 | XMS_ITS | Clinical Summary ---
Author Organization [facility] Address [address] [place] [address] Phone Care Team Providers Care Language Translator Name Role Phone Unavailable Primary Care Provider Unavailabl e Medications No known medications Active Problems Problem Noted Date Diagnosed Date BRCA1 positive 03/05/2024 Tinnitus 03/05/2024 04/25/2022 Displacement of intervertebral disc between L4 a nd L5 03/05/2024 Family History Medical History Relation Name Comments BRCA 1/2 Brother BRCA1+ Heart Attack Father No Known Problems Grandchild Breast Cancer Maternal Aunt 1 Breast Cancer Maternal Aunt 2 No Known Problems Maternal Cousin many Unknown Maternal Grandfather Breast Cancer Maternal Grandmother No Known Problems Mother No Known Problems Nephew x2 No Known Problems Niece 1 Breast Cancer Niece 2 Breast Cancer Paternal Aunt Reccurence at 75 No Known Problems Paternal Cousin 1 many Breast Cancer Paternal Cousin 2 some Brain Cancer Paternal Cousin 3 Unknown Paternal Grandfather Unknown Paternal Grandmother Intellectual Disability Paternal Uncle 1 Unknown Paternal Uncle 2 No Known Problems Paternal Uncle 3 Liver Cancer Sister metastatic ovar y and colon No Known Problems Son 1 No Known Problems Son 2 Relation Name Status Comments Brother Alive Father Grandchild Alive Maternal Aunt 1 Maternal Aunt 2 Maternal Cousin many Alive Maternal Grandfather Maternal Grandmother Maternal Uncle x4 Mother Alive Nephew x2 Alive Niece 1 Alive Niece 2 Alive Paternal Aunt Alive Paternal Cousin 1 many Alive Paternal Cousin 2 some Alive Paternal Cousin 3 Paternal Grandfather Paternal Grandmother Paternal Uncle 1 Paternal Uncle 2 Paternal Uncle 3 Alive Sister Son 1 Alive Son 2 Alive Social History Tobacco Use Types Packs/Day Years Used Date Smoking Tobacco: Never Tobacco Cessation:Counseling Given: Not Answered Alcohol Use Standard Drinks/Week Comments Yes 1 (1 standard drink = 0.6 oz pur e alcohol) Sex and Gender Information Value Date Recorded Sex Assigned at Not on file Legal Sex Male 9:18 AM CDT Gender Identity Not on file Sexual Orientation Not on file Plan of Treatment Health Maintenance Due Date Last Done Comments COLORECTAL SCREENING 2009 Colorectal Cancer Screening 2009 FIT-DNA Q 3 years 2009 FIT/FOBT Q 1 year 2009 Flex Sig/CT Colonography Q 5 years 2009 ZOSTER VACCINE (1 of 2) 2014 DTAP/TDAP/TD VACCINES (2 - T d or Tdap) 06/16/2024 06/16/2014 INFLUENZA VACCINE (#1) 2025 06/16/2014 COVID-19 Vaccine (3 - 2024-2 6 season) 2025 08/22/2021, 07/21/2021 RSV VACCINE (60+ or ) (1 - 1-dose 75+ series) 11/19/2039 HEPATITIS B VACCINES Aged Out No long er eligible based on patient's age to complete this topic Insurance CHOICE [id number]
--- NOTE | 2025-06-10 20:58 | ECG_ITS ---
[facility] [place] Date: 2025-06-10 Pat Name: Matthieu Rod Department: Room: Gender: Male Drop Clipper: : 1965 Requested By: Wen Adhikari Order Number: [id number] Reading MD: MICHAEL GARCIA Measurements Intervals [place] Rate: 61 P: 54 [place]: 170 QRS: 4 QRSD: 110 T: 82 QT: 311 QTc: 315 Interpretive Statements SINUS RHYTHM NONSPECIFIC T-WAVE ABNORMALITY No previous ECG available for comparison Electronically Signed On 06-11-2025 18:30:27 STONEMASON by MICHAEL GARCIA [email or web address]
--- NOTE | 2025-06-10 21:41 | CTR_ITS ---
PROCEDURE INFORMATION: Exam: CT Head Without Contrast Exam date and time: 06/10/2025 9:45 PM Age: 59 years old Clinical indication: Injury or trauma; Fall; Blunt trauma (contusions or hematomas); Additional info: Fall/closed head injury TECHNIQUE: Imaging protocol: Computed tomography of the head without contrast. Radiation optimization: All CT scans at this facility use at least one of these dose optimization techniques: automated exposure control; mA and/or kV adjustment per patient size (includes targeted exams where dose is matched to clinical indication); or iterative reconstruction. COMPARISON: CT head wo/w con [id number] 05/01/2022 10:21 AM RADIATION DOSE METRICS: Total DLP (mGy-cm): 1168.69 FINDINGS: Brain: Cerebral volume loss, which may be age related. Periventricular white matter hypoattenuation is consistent with chronic ischemic small vessel disease. Isabel-white differentiation is otherwise normal. No mass or mass effect. No hemorrhage. Cerebral ventricles: Ex vacuo ventricular dilatation. Paranasal sinuses: Visualized sinuses are unremarkable. No fluid levels. Mastoid air cells: Visualized mastoid air cells are well aerated. Bones: Unremarkable. No acute fracture. Soft tissues: Unremarkable. CT/CT head wo con* [id number] IMPRESSION: Changes from chronic ischemic small vessel disease of periventricular white matter and cerebral volume loss. Otherwise, no acute intracranial process.
--- NOTE | 2025-06-10 21:42 | W.ED.SYNCOPE ---
HPI - Syncope General: Chief Complaint: Syncope Stated Complaint: Chest tight passed out hit head after cut hand Time Seen by Provider: 06/10/25 21:04 History of Present Illness: Patient is a previously healthy 59-year-old male, not on any medications, presents with a chief complaint of syncope and closed head injury. Patient states that he injured himself with a knife, went to the bathroom to show his , started feeling dizzy, started experiencing tunnel vision and fainted. He states he slid down the wall and then hit his head on the floor. Patient was dazed for couple of minutes but no confusion since. Fall was not associated with chest pain, shortness of breath, palpitations although patient states that after the fall, he has mild diffuse chest tightness. Pain is not exertional and nonradiating; he does not have any cardiac history. Patient denies neck or back pain. Patient denies injury to any extremity and has ambulated since. No nausea or vomiting. Patient does not take anticoagulants. Related Data Allergies Allergy/AdvReac Type Severity Reaction Status Date / Time No Known Allergies Allergy Verified 06/10/25 21:00 [facility] ED PFSH: Social History Smoking and tobacco/nicotine status: never used tobacco/nicotine Physical Exam Narrative: EXAM NARRATIVE: Vital signs were reviewed. Patient is alert and oriented. PERRL, EOMI. No laceration or ecchymosis or hematoma on face or scalp. Abrasion to R zoroastrianism and forehead. No pain with palpation of C, T or L-spine. Patient is breathing comfortably, no increased WOB or accessory muscle use. SpO2 is above 95% on RA. Patient has clear lungs b/l, no rhonchi, wheezing or crackles. No hypotension or tachycardia. Abdomen is soft, nondistended and nontender. Patient is moving all extremities, no deformity or gross injury. Patient is ambulatory. There is a less than half centimeter laceration to the volar surface of the right second digit that does not require sutures. Course Vital Signs: Vital signs: Vital Signs Temperature 98.2 F 06/10/25 20:55 Pulse Rate 59 L 06/10/25 22:40 Respiratory Rate 17 06/10/25 22:40 Blood Pressure 100/64 06/10/25 22:40 Pulse Oximetry 95 06/10/25 22:40 MDM - Syncope Medical Decision Making 59-year-old male with a chief complaint of laceration to the right hand, subsequent syncope and closed head injury. Differential diagnosis includes but is limited to, vasovagal syncope, concussion with or without loss of consciousness, traumatic ICH, injury to C, T L-spine, fracture, dislocation or contusion to any extremity, cardiogenic syncope, abrasion, laceration, other. On exam he is interocular stable nontoxic-appearing. Patient is alert and oriented and readily provides history. He was screened with EKG, CBC, BMP and CT head. Tetanus was updated, patient was treated with p.o. Tylenol. Patient has a normal white blood cell count, is not anemic, there are no actionable electrolyte abnormalities and he has normal kidney function and anion gap. He EKG is nonischemic and on reassessment, patient is feeling well, does not have any headache, chest pain or other pain. CT head does not show acute intracranial process. At this time, presentation is most consistent with vasovagal syncope due to head injury. Patient was counseled on supportive care at home, given return precautions and discharged in stable condition with recommendation for outpatient follow-up with primary care nurse or doctor. Lab Data 06/10/25 20:57 06/10/25 20:[address] 06/10/25 21:41 IMPRESSION: Changes from chronic ischemic small vessel disease of periventricular white matter and cerebral volume loss. Otherwise, no acute intracranial process. Laboratory Results WBC 7.88 10^3/uL (3.29-11.43) 06/10/25 20:57 RBC 5.47 10^6/uL (3.85-5.65) 06/10/25 20:57 Hgb 16.70 g/dL (11.27-16.99) 06/10/25 20:57 Hct 49.1 % (37-53) 06/10/25 20:57 MCV 89.8 fl (82-101) 06/10/25 20:57 MCH 30.5 pg (27-33) 06/10/25 20:57 MCHC 34.0 g/dL (30-55) 06/10/25 20:57 RDW 12.0 % (12.1-15.1) L 06/10/25 20:57 Plt Count 274 10^3/cmm (157-399) 06/10/25 20:57 MPV 9.8 fL (7.4-10.4) 06/10/25 20:57 Neut % (Auto) 62.1 % 06/10/25 20:57 Lymph % (Auto) 27.3 % 06/10/25 20:57 [place] % (Auto) 9.1 % 06/10/25 20:57 Eos % (Auto) 0.5 % 06/10/25 20:57 Baso % (Auto) 0.5 % 06/10/25 20:57 Neut # (Auto) 4.89 10^3/uL (1.8-7.7) 06/10/25 20:57 Lymph # (Auto) 2.2 10^3/uL (0.8-4.8) 06/10/25 20:57 [place] # (Auto) 0.7 10^3/uL (0.2-0.9) 06/10/25 20:57 Eos # (Auto) 0.0 10^3/uL (0.0-0.8) 06/10/25 20:57 Baso # (Auto) 0.0 10^3/uL (0.0-0.1) 06/10/25 20:57 Nucleated RBC % (auto) 0 % 06/10/25 20:57 Nucleated RBCs # 0.0 /100WBC 06/10/25 20:57 Sodium 139 mmol/L (136-145) 06/10/25 20:57 Potassium 3.8 mmol/L (3.5-5.1) 06/10/25 20:57 Chloride 100 mmol/L (98-107) 06/10/25 20:57 Carbon Dioxide 27 mmol/L (22-29) 06/10/25 20:57 Anion Gap 15.8 (5-19) 06/10/25 20:57 BUN 14 mg/dL (8-23) 06/10/25 20:57 Creatinine 1.0 mg/dL (0.7-1.2) 06/10/25 20:57 GFR Calculation 76.2 mL/min (90-130) L 06/10/25 20:57 Glucose 148 mg/dL (65-115) H 06/10/25 20:57 Calculated Osmolality 291 mOsm/kg (285-295) 06/10/25 20:57 Calcium 9.4 mg/dL (8.5-10.5) 06/10/25 20:57 All radiology interpretation(s) finalized by discharge EKG Data EKG 1: Interpretation: Normal sinus rhythm with a heart rate of 61, normal axis, normal intervals, no STEMI. Discharge Plan Discharge Patient Disposition: Home Clinical Impression: Vasovagal syncope CHI (closed head injury) Qualifiers: Encounter type: initial encounter Qualified Code(s): S09.90XA - Unspecified injury of head, initial encounter Hand laceration Qualifiers: Encounter type: initial encounter Foreign body presence: unspecified Laterality: right Qualified Code(s): S61.411A - Laceration without foreign body of right hand, initial encounter Condition: Stable Discharge Orders: Discharge ED (Routine); Ordered 06/10/25 Ordered By: Wen Adhikari Referrals: Dario Schmidt MD [Primary Care Provider, [facility]] Patient Instructions: Opioid Safety, Pain Management, Patient Portal & Naren Instructions, Syncope (ED), Head Injury (ED), Laceration Activity Restrictions/Additional Instructions: Please continue to monitor your condition closely at home. Take Ibuprofen 400mg and Tylenol 500-1000mg every six hours for pain and inflammation. If your condition worsens or additional concerns arise, please return promptly to the emergency department for reassessment. Follow up with your primary care doctor in one week. 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
[2025-06-10 21:50] LABS: Hematocrit 49.1 % (37-53); Hemoglobin 16.70 g/dL (11.27-16.99); Mean Corpuscular HGB Conc 34.0 g/dL (30-55); Mean Corpuscular Hemoglobin 30.5 pg (27-33); Mean Corpuscular Volume 89.8 fl (82-101); Nucleated Red Blood Cells % 0 %; Platelet Count 274 10^3/cmm (157-399); Red Blood Count 5.47 10^6/uL (3.85-5.65); White Blood Count 7.88 10^3/uL (3.29-11.43)
[2025-06-10] MEDS: tetanus-diphtheria tox (adult) 0.5 mL SDV IM (21:56)
[2025-06-10 22:10] LABS: Anion Gap 15.8 (5-19); Blood Urea Nitrogen 14 mg/dL (8-23); Calcium 9.4 mg/dL (8.5-10.5); Carbon Dioxide 27 mmol/L (22-29); Chloride 100 mmol/L (98-107); Glucose 148 mg/dL (65-115); Osmolality Calculated 291 mOsm/kg (285-295); Potassium 3.8 mmol/L (3.5-5.1); Sodium 139 mmol/L (136-145)
== END 2025-06-10 23:30 | disposition home or self-care (01) ==
PROVIDERS: Emergency Provider Emergency Medicine; PCP Family Medicine
DX: R55 Syncope and collapse (principal); S09.8XXA Other specified injuries of head, initial encounter; S61.411A Laceration without foreign body of right hand, initial encounter; W26.0XXA Contact with knife, initial encounter; W19.XXXA Unspecified fall, initial encounter
CPT/HCPCS: 70450; 80048; 85025; 90471; 90714; 93005; 99284; J9999